=== PATIENT | female | born 1980 | race Two or more races ===

== ENCOUNTER 2020-03-17 21:22 | Inpatient (IN) | payer OTHER ==
[~2020-03-17] VITALS: Ht 154.9 cm; Wt 37.2 kg
[2020-03-17 21:35] VITALS: BP 109/66
--- NOTE | 2020-03-17 21:35 | NUR ---
ED Nurse Note: Pt presents with diffuse bruises across body, no open wounds.
--- NOTE | 2020-03-17 21:35 | NUR ---
ED Nurse Note: Pt brought into ED by BLS ambulance from [facility] for c/o increased amount of body movements that is not normal for pt per EMS. Pt has hx of flex's disease. Pt is awake and alert, presenting with excessive amount of generalized body movments. Pt is only able to make incomprehensible sounds, not able to speak in full sentences. Pt breathing is normal and unlabored. Pt connected to youth nutritional monitor. Seizure pads in place to prevent injury to patient and bed in lowest position. Will continue to monitor. Pt presents with stable vital signs at this time.
[2020-03-17] MEDS ORDERED: MELATONIN3 MG ORAL (21:40)
[2020-03-17] MEDS ORDERED: DOCUSATE SODIU100 M2 ORAL (21:40)
[2020-03-17] MEDS ORDERED: ACETAMINOPHEN120 MG RECTAL (21:40)
[2020-03-17] MEDS ORDERED: TYLENOL EXTRA500 MG ORAL (21:40)
[2020-03-17] MEDS ORDERED: ZOFRAN ODT8 MG ORAL (21:40)
[2020-03-17] MEDS ORDERED: LEVSIN0.125 MG ORAL (21:40)
[2020-03-17] MEDS ORDERED: ATIVAN2 MG/1 ML IM (21:40)
--- NOTE | 2020-03-17 21:44 | Emergency Room Report ---
History of Present Illness General Chief Complaint: General Complaint Source: Patient, Medical Record Present Illness HPI Patient is a 39-year-old female brought in by after increased generalized body movements. Prior history of Columbia's chorea. Patient was sent in for worsening generalized body movement. Patient had been brought in by basic ambulance. [facility] by Allergies: Coded Allergies: No Known Allergies (Unverified , 03/17/20) COVID-19 Screening Contact w/high risk pt: No Recent Travel to affected area: No Experienced COVID-19 symptoms?: No COVID-19 Testing performed [employer]S FORMER SUPERVISOR: No Patient History Past Medical History: see triage record Reviewed Nursing Documentation: PMH: Agreed; PSxH: Agreed Review of Systems All Other Systems: limited - Limited by poor historian. Physical Exam Vital Signs Date Time Temp Pulse Resp B/P (MAP) Pulse Ox O2 Delivery O2 Flow Rate FiO2 03/17/20 21:21 98.1 75 20 110/52 (71) 97 Room Air Sp02 EP Interpretation: reviewed, normal General Appearance: normal inspection, well appearing, alert, GCS 15, Chronically Ill Head: atraumatic ENT: normal ENT inspection, hearing grossly normal, normal voice Neck: normal inspection, full range of motion, supple, no bony tend Respiratory: normal inspection, lungs clear, normal breath sounds, no respiratory distress, no retraction, no wheezing Cardiovascular #1: regular rate, rhythm, no edema Gastrointestinal: normal inspection, normal bowel sounds, non tender, soft, no guarding, no hernia Genitourinary: no CVA tenderness Musculoskeletal: normal inspection, back normal, normal range of motion Neurologic: alert, responsive, other - Choreiform movements. Psychiatric: normal inspection, judgement/insight normal, mood/affect normal Medical Decision Making Diagnostic Impression: Primary Impression: Columbia chorea Additional Impressions: Dehydration Electrolyte imbalance ER Course Patient presented for increased generalized body movements. Differential diagnosis include was not limited to electrolyte abnormality, atypical seizure, substance abuse, Columbia's chorea among others. Because of complexity of patient's case laboratory tests and imaging studies were ordered. 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 She was noted to have significant choreoathetoid movements. Patient was given IM Ativan due to significant muscle contractions.Dr. Tk Herrera was contacted for inpatient management was contacted for inpatient management due to primary care physician and uncontrolled muscle movements and evidence of dehydration. Laboratory Tests Test 03/19/20 05:10 03/20/20 05:20 White Blood Count 12.0 K/UL (4.8-10.8) H 10.7 K/UL (4.8-10.8) Red Blood Count 4.06 M/UL (4.20-5.40) L 4.07 M/UL (4.20-5.40) L Hemoglobin 12.6 G/DL (12.0-16.0) 13.0 G/DL (12.0-16.0) Hematocrit 37.4 % (37.0-47.0) 37.1 % (37.0-47.0) Mean Corpuscular Volume 92 FL (80-99) 91 FL (80-99) Mean Corpuscular Hemoglobin 31.2 PG (27.0-31.0) H 31.9 PG (27.0-31.0) H Mean Corpuscular Hemoglobin Concent 33.8 G/DL (32.0-36.0) 35.0 G/DL (32.0-36.0) Red Cell Distribution Width 11.8 % (11.6-14.8) 11.2 % (11.6-14.8) L Platelet Count 212 K/UL (150-450) 206 K/UL (150-450) Mean Platelet Volume 5.4 FL (6.5-10.1) L 5.6 FL (6.5-10.1) L Neutrophils (%) (Auto) 74.3 % (45.0-75.0) 58.2 % (45.0-75.0) Lymphocytes (%) (Auto) 16.3 % (20.0-45.0) L 30.6 % (20.0-45.0) Monocytes (%) (Auto) 7.1 % (1.0-10.0) 7.5 % (1.0-10.0) Eosinophils (%) (Auto) 1.5 % (0.0-3.0) 2.6 % (0.0-3.0) Basophils (%) (Auto) 0.8 % (0.0-2.0) 1.1 % (0.0-2.0) Sodium Level 149 MMOL/L (136-145) H 144 MMOL/L (136-145) Potassium Level 3.5 MMOL/L (3.5-5.1) 5.3 MMOL/L (3.5-5.1) #H Chloride Level 111 MMOL/L (98-107) H 107 MMOL/L (98-107) Carbon Dioxide Level 30 MMOL/L (21-32) 32 MMOL/L (21-32) Anion Gap 8 mmol/L (5-15) 5 mmol/L (5-15) Blood Urea Nitrogen 22 mg/dL (7-18) H 12 mg/dL (7-18) Creatinine 0.5 MG/DL (0.55-1.30) L 0.6 MG/DL (0.55-1.30) Estimated Glomerular Filtration Rate > 60 mL/min (>60) > 60 mL/min (>60) Glucose Level 117 MG/DL (74-106) H 88 MG/DL (74-106) Uric Acid 2.2 MG/DL (2.6-7.2) L Calcium Level 9.1 MG/DL (8.5-10.1) 9.0 MG/DL (8.5-10.1) Phosphorus Level 2.2 MG/DL (2.5-4.9) L Magnesium Level 2.1 MG/DL (1.8-2.4) Total Bilirubin 0.4 MG/DL (0.2-1.0) Aspartate Amino Transferase (AST) 127 U/L (15-37) H Alanine Aminotransferase (ALT) 76 U/L (12-78) Alkaline Phosphatase 64 U/L (46-116) Total Protein 6.9 G/DL (6.4-8.2) Albumin 3.5 G/DL (3.4-5.0) Globulin 3.4 g/dL Albumin/Globulin Ratio 1.0 (1.0-2.7) Last Vital Signs Date Time Temp Pulse Resp B/P (MAP) Pulse Ox O2 Delivery O2 Flow Rate FiO2 03/17/20 21:21 98.1 75 20 110/52 (71) 97 Room Air Status: unchanged Disposition: ADMITTED INPATIENT Condition: Stable Wade Blanco MD Mar 17, 2020 21:44
[2020-03-17] MEDS ORDERED: LORazepam Inj 2mg/ml 1ml IM ONE (21:45)
--- NOTE | 2020-03-17 21:45 | NUR ---
ED Nurse Note: IV line established, blood drawn by RN and sent to lab. Urine sample also collected and sent to lab.
[2020-03-17 22:03] LABS: HEMATOCRIT 46.1 % (37.0-47.0); MEAN CORPUSCULAR VOLUME 100 FL (80-99); PLATELET COUNT 310 K/UL (150-450); RED BLOOD COUNT 4.59 M/UL (4.20-5.40); RED CELL DISTRIBUTION WIDTH 13.2 % (11.6-14.8); WHITE BLOOD COUNT 18.4 K/UL (4.8-10.8)
[2020-03-17 22:05] LABS: APPEARANCE,URINE CLEAR; BASOPHILS % (AUTO) 0.5 % (0.0-2.0); BILIRUBIN, URINE NEGATIVE (NEGATIVE); COLOR,URINE PALE YELLOW; EOSINOPHILS % (AUTO) 0.5 % (0.0-3.0); GLUCOSE, URINE (UA) NEGATIVE (NEGATIVE); KETONES,URINE NEGATIVE (NEGATIVE); LEUKOCYTE ESTERASE ,URINE NEGATIVE (NEGATIVE); LYMPHOCYTES % (AUTO) 14.9 % (20.0-45.0); MONOCYTES % (AUTO) 9.6 % (1.0-10.0); NEUTROPHILS % (AUTO) 74.4 % (45.0-75.0); NITRITE,URINE NEGATIVE (NEGATIVE); PH,URINE 5 (4.5-8.0); PROTEIN,URINE 2+ (NEGATIVE); UROBILINOGEN,URINE NORMAL MG/DL (0.0-1.0)
[2020-03-17 22:14] LABS: ANION GAP 8 mmol/L (5-15); BLOOD UREA NITROGEN 43 mg/dL (7-18); CALCIUM 10.3 MG/DL (8.5-10.1); CARBON DIOXIDE 33 MMOL/L (21-32); CHLORIDE 118 MMOL/L (98-107); CREATININE 1.1 MG/DL (0.55-1.30); POTASSIUM 4.7 MMOL/L (3.5-5.1); SODIUM 159 MMOL/L (136-145)
[2020-03-17 22:27] LABS: ALANINE AMINOTRANSFERASE 61 U/L (12-78); ALBUMIN 4.4 G/DL (3.4-5.0); ALKALINE PHOSPHATASE 81 U/L (46-116); ASPARTATE AMINO TRANSFERASE 56 U/L (15-37); BILIRUBIN,TOTAL 0.4 MG/DL (0.2-1.0)
[2020-03-17 22:28] LABS: CREATINE KINASE 1482 U/L (26-308)
[2020-03-17 22:30] VITALS: BP 104/66
--- NOTE | 2020-03-17 22:45 | NUR ---
ED Nurse Note: Report given to HARRIS Graham.
--- NOTE | 2020-03-17 23:00 | NUR ---
NURSE NOTES: PATIENT WAS SAFELY TRANSFERRED TO UNIT VIA GURNEY. RECEIVED REPORT FROM HARRIS MCDANIEL. DR. CORNEJO IS MADE AWARE OF PATIENT'S ARRIVAL. PATIENT IS AWAKE, AAOX0, NON-VERBAL, ON ROOM AIR, NO ACUTE DISTRESS NOTED. PATIENT IS NOTED WITH MULTIPLE BRUISES ACROSS BODY, SKIN TEAR ON RIGHT ELBOW AND UNDER THE CHIN. PATIENT PRESENTS WITH INVOLUNTARY JERKING MOVEMENTS, BUT CALM AT THE MOMENT. VSS. PIV ON RIGHT UPPER ARM 20G INTACT AND PATENT. ALL SIDE RAILS ARE PADDED FOR PROTECTION. BED IS LOCKED AND LOW, BED ALARMS ACTIVE, SIDE RAILS UP X3 AND CALL LIGHT IS WITHIN REACH. WILL CONTINUE TO MONITOR CLOSELY.
--- NOTE | 2020-03-17 23:00 | NUR ---
ED Nurse Note: Pt is stable for transfer to [place] unit at this time per ERMD. Pt is awake and alert, appears more relaxed at this time. Pt breathing is normal and unlabored, HR is WNL. Pt taken to unit via gurney by RN. Pt has no belongings. IV is patent and intact. Pt VSS/NAD.
[2020-03-17 23:05] VITALS: BP 112/63
--- NOTE | 2020-03-17 23:51 | NUR ---
NURSE NOTES: CALL AND LEFT MESSAGE WITH DR. CORNEJO, AWAITING FOR CALL BACK.
[2020-03-18] MEDS: cefTRIAXone 1 GM in D5W 55 ML IVPB SCH ×2 (00:54→23:11)
[2020-03-18] MEDS ORDERED: LORazepam Inj 2mg/ml 1ml IV SCH (03:00)
--- NOTE | 2020-03-18 03:00 | NUR ---
NURSE NOTES: PATIENT IS AWAKE, AGITATED WITH AGGRESSIVE INVOLUNTARY JERKING MOVEMENTS. RECEIVED BRIDGE ORDERS FROM KRISTIN GONZALEZ FOR ATIVAN 1MG IV X1.
--- NOTE | 2020-03-18 04:00 | NUR ---
NURSE NOTES: RECEIVED ADMISSION ORDERS FROM DR. CORNEJO.
[2020-03-18] MEDS ORDERED: Acetaminophen 500mg (ES) tab ORAL PRN ×2 (04:45)
[2020-03-18] MEDS ORDERED: LORazepam Inj 2mg/ml 1ml IM SCH ×3 (04:45→17:45)
[2020-03-18] MEDS ORDERED: Hyoscyamine 0.125mg tab ORAL PRN (04:45)
[2020-03-18] MEDS ORDERED: D5 1/2NS 1,000 ML IV SCH (05:00)
--- NOTE | 2020-03-18 07:20 | NUR ---
NURSE NOTES: Handoff received from Gladys RN. Patient is awake, AxO x0, and non-verbal. Right FA IV is patent and asymptomatic, currently saline locked. Several bruises are noted on ZEUS legs and arms, open skin tear noted on right elbow. Patient is exhibiting involuntary jerking movements and frequently moves around the bed. Bed is low and locked, side rails are padded and up x4. Patient was moved to a room closer to the nurses station for safety.
--- NOTE | 2020-03-18 07:33 | NUR ---
HAND-OFF: Report given to HARRIS Dan.
[2020-03-18 07:43] LABS: BASOPHILS % (AUTO) 0.8 % (0.0-2.0); EOSINOPHILS % (AUTO) 0.8 % (0.0-3.0); HEMATOCRIT 35.9 % (37.0-47.0); HEMOGLOBIN 12.2 G/DL (12.0-16.0); LYMPHOCYTES % (AUTO) 17.6 % (20.0-45.0); MEAN CORPUSCULAR VOLUME 92 FL (80-99); MONOCYTES % (AUTO) 8.6 % (1.0-10.0); NEUTROPHILS % (AUTO) 72.2 % (45.0-75.0); PLATELET COUNT 217 K/UL (150-450); RED BLOOD COUNT 3.91 M/UL (4.20-5.40); RED CELL DISTRIBUTION WIDTH 11.9 % (11.6-14.8); WHITE BLOOD COUNT 14.1 K/UL (4.8-10.8)
[2020-03-18 08:06] LABS: ANION GAP 8 mmol/L (5-15); BLOOD UREA NITROGEN 25 mg/dL (7-18); CALCIUM 8.7 MG/DL (8.5-10.1); CARBON DIOXIDE 28 MMOL/L (21-32); CHLORIDE 121 MMOL/L (98-107); CREATININE 0.5 MG/DL (0.55-1.30); POTASSIUM 3.4 MMOL/L (3.5-5.1); SODIUM 157 MMOL/L (136-145)
[2020-03-18] MEDS: Docusate 100mg cap ORAL SCH (09:00)
[2020-03-18 09:07] LABS: ALANINE AMINOTRANSFERASE 52 U/L (12-78); ALBUMIN 3.5 G/DL (3.4-5.0); ALKALINE PHOSPHATASE 58 U/L (46-116); ASPARTATE AMINO TRANSFERASE 67 U/L (15-37); BILIRUBIN,DIRECT < 0.1 MG/DL (0.0-0.3); BILIRUBIN,TOTAL 0.5 MG/DL (0.2-1.0); PHOSPHORUS 2.2 MG/DL (2.5-4.9)
--- NOTE | 2020-03-18 09:50 | NUR ---
NURSE NOTES: Called to inform Dr. Brown about ordered fluids, patient thrashing in bed and pulled out IV. No new orders.
--- NOTE | 2020-03-18 10:14 | NUR ---
RD ASSESSMENT & RECOMMENDATIONS SEE CARE ACTIVITY FOR COMPLETE ASSESSMENT DAILY ESTIMATED NEEDS: Needs based on Underweight 37kg 30-35 kcals/kg 2050-9025 total kcals 1-1.5 g protein/kg 37-56 g total protein 25-30 mL/kg 925-1110 total fluid mLs NUTRITION DIAGNOSIS: Increased kcal and pro needs r/t underweight status as evidenced by BMI underweight per guidelines, 84% of [place] Body Weight. (CURRENT DIET: regular) PO DIET RECOMMENDATIONS: Regular diet/ Texture per OUTBOUND CALL CENTER REPRESENTATIVE ENTERAL NUTRITION RECOMMENDATIONS: * Consult RD if non oral feeds are part of POC * ADDITIONAL RECOMMENDATIONS: 1) Maintain accurate calibrated bed scale wt in light of underweight BMI 2) Rec OUTBOUND CALL CENTER REPRESENTATIVE eval for appropriate texture 3) Add Ensure w/ meals 4) Monitor hydration status, rec IVF w/ poor po intake 5) F/up w/ H&P
[2020-03-18] MEDS ORDERED: Acetaminophen 650 MG SUPP RECTAL PRN (10:15)
--- NOTE | 2020-03-18 10:15 | NUR ---
NURSE NOTES: Called Dr. Yates and left a message regarding possible restraints and/or PRNs for patient. Waiting for call back.
--- NOTE | 2020-03-18 10:21 | NUR ---
*-* INSURANCE *-* ALL AVAILABLE CLINICALS HAVE BEEN FAXED TO: [facility] F: [phone]
--- NOTE | 2020-03-18 11:10 | NUR ---
PT EVALUATION NOTE Patient seen for initial evaluation. Patient with involuntary jerking movements and patient unable to follow commands. Patient unable to participate with skilled PT, not appropriate candidate for skilled inpatient PT intervention at this time. Patient discharged from PT, Sy IGLESIAS notified. Skilled PT can be re-ordered by MD if patient's cognitive and medical condition improve. Addendum: 03/18/20 at 1239 by STACY ARRIAGA PT Amended: Links added.
[2020-03-18 12:00] VITALS: BP 115/70
--- NOTE | 2020-03-18 12:00 | NUR ---
NURSE NOTES: Doctor Yates ordered Ativan 1mg IV once. Will medicate patient as ordered and attempt to place IV.
--- NOTE | 2020-03-18 13:30 | Consultation ---
History of Present Illness General Date patient seen: Mar 18, 2020 Chief Complaint: General Complaint Present Illness HPI 39 y/o F with hx of Wm's chorea, [place] resident ([facility] ) presented to ED on 03/17 with increased generalized body movements. Allergies: Coded Allergies: No Known Allergies (Unverified , 03/17/20) Medication History Scheduled Docusate Sodium (Docusate Sodium), 100 MG ORAL DAILY, (Reported) Lorazepam* (Ativan*), 1 MG IM Q6H, (Reported) Scheduled PRN Acetaminophen* (Tylenol*), 120 MG RECTAL Q4H PRN for Mild Pain/Temp > 100.5, ( Reported) Acetaminophen* (Tylenol Extra Strength*), 650 MG ORAL Q6H PRN for Mild Pain/ Temp > 100.5, (Reported) Acetaminophen* (Tylenol Extra Strength*), 650 MG ORAL Q6H PRN for Mild Pain/ Temp > 100.5, (Reported) Melatonin (Melatonin), 3 MG ORAL BEDTIME PRN for Insomnia, (Reported) Ondansetron Odt* (Zofran Odt*), 4 MG ORAL Q6H PRN for Nausea & Vomiting, ( Reported) Miscellaneous Medications Hyoscyamine Sulfate (Levsin), 0.125 MG ORAL, (Reported) Patient History Healthcare decision maker Resuscitation status Advanced Directive on File Patient History Narrative Pmhx: as above SHx: reviewed Fhx: non contributory Review of Systems All Other Systems: negative except mentioned in HPI Physical Exam Physical Exam Narrative General Appearance: normal inspection, well appearing, alert Head: atraumatic ENT: normal ENT inspection, hearing grossly normal, normal voice Neck: normal inspection, full range of motion, supple, no bony tend Respiratory: normal inspection, lungs clear, normal breath sounds, no respiratory distress, no retraction, no wheezing Cardiovascular #1: regular rate, rhythm, no edema Gastrointestinal: normal inspection, normal bowel sounds, non tender, soft, no guarding, no hernia Genitourinary: no CVA tenderness Musculoskeletal: normal inspection, back normal, normal range of motion Neurologic: alert, responsive, speech normal, normal inspection, other - Choreiform movements. Last 24 Hour Vital Signs Date Time Temp Pulse Resp B/P (MAP) Pulse Ox O2 Delivery O2 Flow Rate FiO2 03/18/20 01:03 Room Air 03/17/20 23:05 97.8 60 18 112/63 (79) 100 03/17/20 23:00 99.0 74 16 114/76 99 Room Air 03/17/20 22:30 99.0 69 18 104/66 100 Room Air 03/17/20 21:35 76 24 Room Air 03/17/20 21:35 99.9 76 24 109/66 98 Room Air 03/17/20 21:21 98.1 75 20 110/52 (71) 97 Room Air Intake and Output 03/17/20 03/18/20 19:00 07:00 Intake Total 110 ml Output Total 100 ml Balance 10 ml Intake Oral 0 ml IV Total 110 ml Output Urine Total 100 ml # Voids 2 Laboratory Tests Test 03/17/20 21:40 03/18/20 05:00 White Blood Count 18.4 K/UL (4.8-10.8) H 14.1 K/UL (4.8-10.8) H Red Blood Count 4.59 M/UL (4.20-5.40) 3.91 M/UL (4.20-5.40) L Hemoglobin 14.0 G/DL (12.0-16.0) 12.2 G/DL (12.0-16.0) Hematocrit 46.1 % (37.0-47.0) 35.9 % (37.0-47.0) L Mean Corpuscular Volume 100 FL (80-99) H 92 FL (80-99) Mean Corpuscular Hemoglobin 30.5 PG (27.0-31.0) 31.2 PG (27.0-31.0) H Mean Corpuscular Hemoglobin Concent 30.4 G/DL (32.0-36.0) L 34.0 G/DL (32.0-36.0) Red Cell Distribution Width 13.2 % (11.6-14.8) 11.9 % (11.6-14.8) Platelet Count 310 K/UL (150-450) 217 K/UL (150-450) Mean Platelet Volume 7.6 FL (6.5-10.1) 5.8 FL (6.5-10.1) L Neutrophils (%) (Auto) 74.4 % (45.0-75.0) 72.2 % (45.0-75.0) Lymphocytes (%) (Auto) 14.9 % (20.0-45.0) L 17.6 % (20.0-45.0) L Monocytes (%) (Auto) 9.6 % (1.0-10.0) 8.6 % (1.0-10.0) Eosinophils (%) (Auto) 0.5 % (0.0-3.0) 0.8 % (0.0-3.0) Basophils (%) (Auto) 0.5 % (0.0-2.0) 0.8 % (0.0-2.0) Urine Color Pale yellow Urine Appearance Clear Urine pH 5 (4.5-8.0) Urine Specific [place] 1.020 (1.005-1.035) Urine Protein 2+ (NEGATIVE) H Urine Glucose (UA) Negative (NEGATIVE) Urine Ketones Negative (NEGATIVE) Urine Blood 5+ (NEGATIVE) H Urine Nitrite Negative (NEGATIVE) Urine Bilirubin Negative (NEGATIVE) Urine Urobilinogen Normal MG/DL (0.0-1.0) Urine Leukocyte Esterase Negative (NEGATIVE) Urine RBC 2-4 /HPF (0 - 2) H Urine WBC 0-2 /HPF (0 - 2) Urine Squamous Epithelial Cells None /LPF (NONE/OCC) Urine Bacteria Few /HPF (NONE) Urine HCG, Qualitative Negative (NEGATIVE) Sodium Level 159 MMOL/L (136-145) H 157 MMOL/L (136-145) H Potassium Level 4.7 MMOL/L (3.5-5.1) 3.4 MMOL/L (3.5-5.1) L Chloride Level 118 MMOL/L (98-107) H 121 MMOL/L (98-107) H Carbon Dioxide Level 33 MMOL/L (21-32) H 28 MMOL/L (21-32) Anion Gap 8 mmol/L (5-15) 8 mmol/L (5-15) Blood Urea Nitrogen 43 mg/dL (7-18) H 25 mg/dL (7-18) H Creatinine 1.1 MG/DL (0.55-1.30) 0.5 MG/DL (0.55-1.30) #L Estimat Glomerular Filtration Rate 55.6 mL/min (>60) > 60 mL/min (>60) Glucose Level 141 MG/DL (74-106) H 116 MG/DL (74-106) H Calcium Level 10.3 MG/DL (8.5-10.1) H 8.7 MG/DL (8.5-10.1) Total Bilirubin 0.4 MG/DL (0.2-1.0) 0.5 MG/DL (0.2-1.0) Aspartate Amino Transf (AST/SGOT) 56 U/L (15-37) H 67 U/L (15-37) H Alanine Aminotransferase (ALT/SGPT) 61 U/L (12-78) 52 U/L (12-78) Alkaline Phosphatase 81 U/L (46-116) 58 U/L (46-116) Total Creatine Kinase 1482 U/L (26-308) H Total Protein 8.7 G/DL (6.4-8.2) H 6.8 G/DL (6.4-8.2) Albumin 4.4 G/DL (3.4-5.0) 3.5 G/DL (3.4-5.0) Globulin 4.3 g/dL Albumin/Globulin Ratio 1.0 (1.0-2.7) Thyroid Stimulating Hormone (TSH) 0.377 uiU/mL (0.358-3.740) Urine Opiates Screen Negative (NEGATIVE) Urine Barbiturates Screen Negative (NEGATIVE) Phencyclidine (PCP) Screen Negative (NEGATIVE) Urine Amphetamines Screen Negative (NEGATIVE) Urine Benzodiazepines Screen Negative (NEGATIVE) Urine Cocaine Screen Negative (NEGATIVE) Urine Marijuana (THC) Screen Negative (NEGATIVE) Phosphorus Level 2.2 MG/DL (2.5-4.9) L Magnesium Level 2.3 MG/DL (1.8-2.4) Direct Bilirubin < 0.1 MG/DL (0.0-0.3) Microbiology Date/Time Source Procedure Growth Status 03/17/20 22:30 Rectum Received Height (Feet): 5 Height (Inches): 1.00 Weight (Pounds): 82 Medications Current Medications Medications (Trade) Dose Ordered Sig/Martin Route PRN Reason Start Time Stop Time Status Last Admin Dose Admin Acetaminophen (Tylenol) 650 mg Q4H PRN RECTAL Mild Pain/TEMP 03/18/20 10:15 04/17/20 10:14 Acetaminophen (Tylenol) 650 mg Q6H PRN ORAL MILD/TEMP 03/18/20 05:15 04/17/20 04:44 Acetaminophen (Tylenol) 650 mg Q6H PRN ORAL MILD/TEMP 03/18/20 05:15 04/17/20 04:44 Ceftriaxone Sodium 1 gm/ Dextrose 55 ml @ 110 mls/hr Q24H IVPB 03/18/20 00:00 03/25/20 00:00 03/18/20 00:54 Dextrose 1,000 ml @ 75 mls/hr [id number] IV 03/18/20 08:30 04/17/20 08:29 Docusate Sodium (Colace) 100 mg DAILY ORAL 03/18/20 09:00 04/17/20 08:59 Hyoscyamine Sulfate (Levsin) 0.125 mg Q6H PRN ORAL EXCESSIVE SECRETIONS 03/18/20 04:45 04/17/20 04:44 Lorazepam (Ativan 2mg/ml 1ml) 1 mg Q6H PRN IM For Anxiety 03/18/20 05:00 03/25/20 04:44 Ondansetron HCl (Zofran ODT) 4 mg Q6H PRN ORAL Nausea & Vomiting 03/18/20 04:45 04/17/20 04:44 Quetiapine Fumarate (SEROqueL) 50 mg TID ORAL 03/18/20 13:00 05/02/20 12:59 Assessment/Plan Assessment/Plan: Abx: Ceftriaxone 03/18- Assessment: Afebrile Leukocytosis, improving- likely reactive and from hemoconcentration due to dehydration -CXR p -Bcx p -u/a no pyuria, nit neg, leuk neg Dehydration Rhabdomylosis AMY, improving -CK int the 1k, blood in urine +5 but no RBCs Wm's chorea- increased in movements [place] resident ([facility]) Plan: -Continue empiric Ceftriaxone #1 pending CXR and Blood cultures -f/u cx -Monitor CBC/CMP, temperatures -Neuro eval -aspiration precautions Thank you for consulting [facility]. Will continue to follow along with you. Anamika Mejía M.D. Mar 18, 2020 13:30
--- NOTE | 2020-03-18 13:57 | Consultation ---
Consult Note Consult Note I am asked to evaluate the patient at the request of Dr. Herrera for fluid and electrolyte management Patient is a young female who has past history of psychiatric disorder Emergency room note: Patient is a 39-year-old female brought in by after increased generalized body movements. Prior history of [place]'s chorea. Patient was sent in for worsening generalized body movement. Patient had been brought in by basic ambulance. [facility] Allergies: No Known Allergies (Unverified , 03/17/20) COVID-19 Screening Contact w/high risk pt: No Recent Travel to affected area: No Experienced COVID-19 symptoms?: No COVID-19 Testing performed ZIPPER REPAIRER: No Patient seen in room 310. RN present. Patient has severe Choreic movements. Cannot be examined. Patient pulls all the IVs out. Assessment/Plan Dehydration Hypernatremia secondary to dehydration and free water deficit Electrolyte abnormalities, hypokalemia, hypophosphatemia, Suggestions: Neuro/psych management IV D5W for hydration Monitor electrolytes and chemistries Discussed with RN I spent an additional 36 minutes on review of medical records including prior hospital records,consult notes, progress notes, procedures ,imaging labs, hemodynamics, and other clinical documentation. Hayden Brown MD Mar 18, 2020 13:57
--- NOTE | 2020-03-18 14:13 | NUR ---
CASE MANAGEMENT: INITIAL REVIEW 39YR OLD BIBA FROM [facility] CC:GENERAL COMPLAINT PMHX: ARRON DISEASE SI:ARRON CHOREA 98.1 75 20 110/52 97% ON RA WBC 18.4 NA+ 159 CL-118 CO2-33 BUN 43 BG 141 CA+ 10.3 AST 56 CK 1482 IS:IM ATIVAN X1 IV ATIVAN X1 IVF NS BOLUS X3 \: 3E MED SURG UNIT CASE MANAGEMENT: REVIEW 03/18/20 SI:ARRON CHOREA 97.8 60 18 112/63 100% ON RA WBC 14.4 NA+ 157 K+3.4 CL-121 CO2-33 BUN 25 CREAT 0.5 BG 116 PHOS 2.2 CA+ 10.3 AST 67 IS:IV ROCEPHIN Q24HR \: 3E MED SURG UNIT PLAN: CONSULT NEPHRO
--- NOTE | 2020-03-18 17:20 | NUR ---
HAND-OFF: Report given to Nacho IGLESIAS.
--- NOTE | 2020-03-18 17:30 | NUR ---
NURSE NOTES: Dr. Yates ordered Haldol 10, ativan 2, benadryl 50 IM once. Will medicate patient as ordered and attempt to place IV.
[2020-03-18] MEDS ORDERED: DiphenhydrAMINE 50mg/ml Inj IM SCH (17:45)
[2020-03-18] MEDS ORDERED: Haloperidol 5mg/ml Inj IM SCH (17:45)
[2020-03-18] MEDS: Phospha 250 Neutral tab ORAL SCH (18:00)
--- NOTE | 2020-03-18 18:00 | NUR ---
NURSE NOTES: IV was placed on patient's right forearm 22g.
--- NOTE | 2020-03-18 19:00 | History and Physical Report ---
DATE OF ADMISSION: 03/17/2020 DATE AND TIME SEEN: 03/18/2020 at 10 a.m. CONSULTANTS: 1. John Yates MD. 2. Dago Fisher MD. 3. Hayden Brown MD. 4. Dom Bond MD. CHIEF COMPLAINT: Dehydration, Wm's, possible seizure, schizophrenia. BRIEF HISTORY: This is a 39-year-old female from [facility] presented with above-mentioned diagnoses, admitted to medical floor. Currently confused in bed, writhing movement, combative. PAST MEDICAL HISTORY: Includes [place]'s and schizophrenia. PAST SURGICAL HISTORY: Unknown. MEDICATIONS: Include Tylenol, , IV fluids, Lorazepam, Zofran, ceftriaxone. ALLERGIES: Denies. SOCIAL HISTORY: Unable to obtain. OBJECTIVE: GENERAL: Confused in bed, disoriented x3. Writhing movements. VITAL SIGNS: Temperature 97 degrees, pulse 60, respirations 18, blood pressure 112/63. HEENT: Normocephalic, atraumatic. NECK: Trachea midline. CARDIOVASCULAR: No peripheral edema. LUNGS: Breathing comfortably on room air. ABDOMEN: No apparent wound. EXTREMITIES: No cyanosis or clubbing. NEUROLOGIC: Patient has writhing movement with arms and head. LABORATORY AND DIAGNOSTIC DATA: Labs at this time show white count 14, hemoglobin and hematocrit 12/35, platelets 217. Sodium 157, potassium 3.4, chloride 121, BUN/creatinine 25/0.5, glucose 116. CK is 1482. Urinalysis show 5+ blood, 2+ protein. Urine tox is negative. ASSESSMENT: 1. Dehydration. 2. Seizure. 3. Leukocytosis. 4. [place]'s disease. 5. Schizophrenia. PLAN: 1. Antibiotics per Infectious Disease. 2. Psychiatric treatment. 3. Dietary followup. 4. Seizure control. 5. Fluids. 6. PT, dietary evaluation. 7. CBC, BMP in the morning. Tk Herrera D.O. DR: JAKE JOB#: [id number] CC:
--- NOTE | 2020-03-18 19:30 | NUR ---
NURSE NOTES: Received patient in bed. Asleep. IV site patent and intact. Bed in lowest position. Call light within reach. Will continue to monitor.
[2020-03-18 20:00] VITALS: BP 101/71
[2020-03-18] MEDS: Heparin 5000 units/ml inj SUBQ SCH (21:58)
--- NOTE | 2020-03-18 23:00 | Consultation ---
DATE OF CONSULTATION: 03/18/2020 CONSULTING PHYSICIAN: John Yates MD HISTORY OF PRESENT ILLNESS: This is a 39-year-old female patient with altered mental status. She is confused and disorganized. She does have altered mental status and she came to the hospital because her body movements have become more severe and she has been having some psychomotor agitation and irritability and difficult to control from a standpoint of the long term. So, she was brought into the hospital. I saw and assessed her at bedside. She does have mood dysphoria, lot of psychomotor and choreiform movements, confusion, disorganized thought process, and they wanted to rule out seizure activity, but the patient is very confused and disorganized. MEDICAL PROBLEMS: She has Wm's chorea. ALLERGIES: No known drug allergies. PSYCHOTROPIC MEDICATIONS ON ADMISSION: The patient is on a psychotropic medication regimen consisting of melatonin and Ativan. SUBSTANCE ABUSE HISTORY: No history of drug or alcohol use. PAIN ASSESSMENT: 12/23. DEVELOPMENTAL PROBLEMS: Denies. FAMILY PSYCHIATRIC HISTORY: Denies. SOCIAL HISTORY: Lives in [facility]. Financially supported by [employer] and Medicare. STRENGTHS: She is motivated to get better and has a place to live. WEAKNESSES: She is impulsive. Minimal support system. MENTAL STATUS EXAMINATION: This is a 39-year-old female. Appearance is disheveled. Attitude, irritable and agitated. Affect, guarded and restricted. Intellect poor because she cannot do serial 7's or spell world backwards. Orientation x2. She is oriented to person and place, not time and situation. Speech is nonsensical. Thought process, disorganized and illogical. Thought content, she has auditory hallucinations and paranoid delusions. Perception is poor because she has perceptual disturbances such as auditory hallucinations and paranoid delusions. Abstract reasoning is poor because she does not understand proverbs, only has concrete thinking. Insight is poor she does not recognize having any psychiatric disorder. Judgment is poor because she cannot make clear decisions for herself. DIAGNOSES: 1. Major depressive disorder, severe, recurrent with psychotic features. 2. No secondary. 3. Medical, [place]'s chorea. 4. Psychosocial stressors, financial. 5. Functional impairment is severe. PLAN: I am going to start and give this patient a medication regimen of Seroquel 50 mg twice a day to help reduce agitation and irritability and help calm down her psychomotor agitation and she seems to have a lot of psychomotor agitation at bedside and had to be put on restraints, but the restraints are not working well, so automatic negative thoughts to be taken with Ativan. She seemed to have some psychomotor agitation as well and titrate up as needed. Seen and assessed at bedside. Twenty minutes of insight-oriented psychotherapy will be provided where I help this patient's insight into her physical and mental condition so that she has better impulse control and behavior on the unit and less depression. Twenty minutes of insight-oriented psychotherapy provided. Chart was reviewed and discussed with staff. The patient was seen and assessed at bedside. I would like to thank Dr. Tk Herrera for this interesting consultation. John Yates M.D. DR: VESTA JOB#: [id number] CC:
[2020-03-19] VITALS: BP 114/75
[2020-03-19] MEDS: LORazepam Inj 2mg/ml 1ml IM PRN ×2 (00:48→12:41)
--- NOTE | 2020-03-19 01:45 | Consultation ---
DATE OF CONSULTATION: 03/18/2020 NEUROLOGICAL CONSULTATION CONSULTING PHYSICIAN: Dago Fisher MD CHIEF COMPLAINT: This is the first [facility] admission for this 39-year-old woman with [place]'s chorea, who is admitted with a chief complaint of increased generalized body movement and fluid electrolyte management. I was asked to see the patient because of "seizure," although the seizure has not been documented. [place] [address] and mild anemia, normal platelets. Her osmolarity is probably around 324, BUN is now 25, was 43. CPK was 1482. TSH is 0.377. Urinalysis reveals few bacteria in the urine and only 2 white cells per high-power field. PAST MEDICAL HISTORY AND PAST MEDICAL ILLNESSES: Except as above, unavailable. ALLERGIES: No known allergies. HABITS: Unavailable. REVIEW OF SYSTEMS: Unavailable. PHYSICAL EXAMINATION: VITAL SIGNS: Last vital signs, which were done on March 17, 2020 were temperature 97.8 degrees, pulse is 60, blood pressure 112/62 with a respiratory rate of 18, on room air SpO2 is 100%. The patient could not be examined. The patient was in the position, could not be easily stretched out. MENTAL STATUS EXAMINATION: There is no reaction to her name. Her eyes are closed. She would have some slight choreoathetotic movements of her legs, none to be noted in her arms. There was no spontaneous speech. Rest of the could not be done. IMPRESSION: This patient has altered mental status from [place]'s chorea and hyperosmolar state. Her CPK is elevated . Her medications that she is on are unlikely to cause malignant hyperthermia. There is no evidence of seizures at this time. Therefore, I would not treat her with anticonvulsants. PLAN: 1. Hydrate the patient . 2. May want to get an Infectious Disease consult. Thank you for this interesting case. Dago Fisher MD DR: KERI JOB#: [id number] CC:
[2020-03-19 04:00] VITALS: BP 131/100
--- NOTE | 2020-03-19 05:25 | NUR ---
NURSE NOTES: Patient has severe body movement, very agitating, trying to remove IV line. Obtained order of Haldol 10mg IM, Ativan 2mg IM, Benadryl 50mg IM once and bilateral soft wrist Restraint from Dr. Yates.
[2020-03-19] MEDS ORDERED: Haloperidol 5mg/ml Inj IM SCH ×2 (05:45→14:30)
[2020-03-19] MEDS ORDERED: DiphenhydrAMINE 50mg/ml Inj IM SCH ×2 (05:45→14:30)
[2020-03-19] MEDS ORDERED: LORazepam Inj 2mg/ml 1ml IM SCH ×2 (05:45→14:30)
[2020-03-19 06:22] LABS: BASOPHILS % (AUTO) 0.8 % (0.0-2.0); EOSINOPHILS % (AUTO) 1.5 % (0.0-3.0); HEMATOCRIT 37.4 % (37.0-47.0); HEMOGLOBIN 12.6 G/DL (12.0-16.0); LYMPHOCYTES % (AUTO) 16.3 % (20.0-45.0); MEAN CORPUSCULAR VOLUME 92 FL (80-99); MONOCYTES % (AUTO) 7.1 % (1.0-10.0); NEUTROPHILS % (AUTO) 74.3 % (45.0-75.0); PLATELET COUNT 212 K/UL (150-450); RED BLOOD COUNT 4.06 M/UL (4.20-5.40); RED CELL DISTRIBUTION WIDTH 11.8 % (11.6-14.8)
[2020-03-19 06:56] LABS: ALANINE AMINOTRANSFERASE 76 U/L (12-78); ALBUMIN 3.5 G/DL (3.4-5.0); ALKALINE PHOSPHATASE 64 U/L (46-116); ANION GAP 8 mmol/L (5-15); ASPARTATE AMINO TRANSFERASE 127 U/L (15-37); BILIRUBIN,TOTAL 0.4 MG/DL (0.2-1.0); BLOOD UREA NITROGEN 22 mg/dL (7-18); CALCIUM 9.1 MG/DL (8.5-10.1); CARBON DIOXIDE 30 MMOL/L (21-32); CHLORIDE 111 MMOL/L (98-107); CREATININE 0.5 MG/DL (0.55-1.30); PHOSPHORUS 2.2 MG/DL (2.5-4.9); POTASSIUM 3.5 MMOL/L (3.5-5.1); SODIUM 149 MMOL/L (136-145)
--- NOTE | 2020-03-19 07:16 | NUR ---
HAND-OFF: Report given to Sy IGLESIAS. VS stable. Asleep, calm. Bed in lowest position. Call light within reach. will continue to monitor.
--- NOTE | 2020-03-19 07:25 | NUR ---
NURSE NOTES: Handoff received from Nacho IGLESIAS. Patient is asleep and calm, no signs of distress noted. Patient is in ZEUS soft wrist restraints. Restraints were assessed, no s/s of impaired circulation. Right forearm IV is patent and asymptomatic, running IVF as ordered. Side rails are up x3 and padded for safety. Bed is low and locked, call light within reach.
[2020-03-19 08:00] VITALS: BP 107/65
--- NOTE | 2020-03-19 08:45 | Progress Note ---
DATE: 03/18/2020 PSYCHOTHERAPY CONSULTATION PROGRESS NOTE TREATING ATTENDING PHYSICIAN: Tk Herrera D.O. HISTORY OF PRESENT ILLNESS: This is a 39-year-old female patient. The patient was brought in to the hospital for altered mental status. In the hospital, the patient has been . She is nonverbal at this time. However, she the patient is extremely disorganized . PAST MEDICAL HISTORY: financially sustained through [employer]. ALLERGIES: The patient has no known drug allergies. SUBSTANCE ABUSE HISTORY: There is no indication of alcohol use, illicit substance use, or smoking cigarette. PSYCHIATRIC HISTORY: The patient has a history of anxiety and has been treated with psychotropic medications in the past. SOCIAL HISTORY: The patient is a 39-year-old female [facility], financially sustained through [employer]. MENTAL STATUS EXAMINATION: The patient is alert and oriented to person. Mood is anxious. Affect . Thought process, disorganized. She has poor attention and concentration. Poor insight, judgment, and impulse control. DIAGNOSES: Generalized anxiety disorder and disorder. reality orientation which are focused on improving cognitive function of the patient who is confused and disorganized. Oriented to person, place, time and situation. The patient is extremely disorganized and confused, hopeless, and helpless . Plan is to maintain medication compliance with use of positive coping skills anxious and altered mental status. Iveth Mcintosh PsyD. DR: CHAVEZ JOB#: [id number] CC:
[2020-03-19] MEDS: Docusate 100mg cap ORAL SCH (09:00)
[2020-03-19] MEDS: Phospha 250 Neutral tab ORAL SCH ×3 (09:00→18:00)
[2020-03-19] MEDS: Heparin 5000 units/ml inj SUBQ SCH ×2 (09:28→22:04)
--- NOTE | 2020-03-19 10:00 | NUR ---
NURSE NOTES: Dr. Brown was informed during his rounds that the patient is refusing all PO meds.
--- NOTE | 2020-03-19 10:04 | Nephrology Progress Note ---
Assessment/Plan Problem List: (1) Dehydration (2) Electrolyte imbalance Assessment Dehydration Hypernatremia secondary to dehydration and free water deficit Electrolyte abnormalities, hypokalemia, hypophosphatemia, Plan Patient calm today. IV fluids running. P.o. intake remains poor. Discussed with RN. Neuro/psych management Continue IV D5W for hydration Monitor electrolytes and chemistries Discussed with RN Subjective ROS Limited/Unobtainable: No Objective Objective Last 24 Hour Vital Signs Date Time Temp Pulse Resp B/P (MAP) Pulse Ox O2 Delivery O2 Flow Rate FiO2 03/19/20 08:00 97.0 60 18 107/65 (79) 99 03/19/20 04:00 97.6 101 20 131/100 (110) 96 03/19/20 00:00 97.1 54 16 114/75 (88) 97 03/18/20 21:00 Room Air 03/18/20 20:00 98.1 58 16 101/71 (81) 98 03/18/20 12:00 97.8 74 20 115/70 (85) 96 Intake and Output 03/18/20 03/19/20 19:00 07:00 Intake Total 75 ml 1285 ml Balance 75 ml 1285 ml Intake Oral 480 ml IV Total 75 ml 805 ml # Voids 2 2 Laboratory Tests 03/19/20 05:10: White Blood Count 12.0H, Red Blood Count 4.06L, Hemoglobin 12.6, Hematocrit 37.4 , Mean Corpuscular Volume 92, Mean Corpuscular Hemoglobin 31.2H, Mean Corpuscular Hemoglobin Concent 33.8, Red Cell Distribution Width 11.8, Platelet Count 212, Mean Platelet Volume 5.4L, Neutrophils (%) (Auto) 74.3, Lymphocytes ( %) (Auto) 16.3L, Monocytes (%) (Auto) 7.1, Eosinophils (%) (Auto) 1.5, Basophils (%) (Auto) 0.8, Sodium Level 149H, Potassium Level 3.5, Chloride Level 111H, Carbon Dioxide Level 30, Anion Gap 8, Blood Urea Nitrogen 22H, Creatinine 0.5L, Estimat Glomerular Filtration Rate > 60, Glucose Level 117H, Uric Acid 2.2L, Calcium Level 9.1, Phosphorus Level 2.2L, Magnesium Level 2.1, Total Bilirubin 0.4, Aspartate Amino Transf (AST/SGOT) 127H, Alanine Aminotransferase (ALT/SGPT) 76, Alkaline Phosphatase 64, Total Protein 6.9, Albumin 3.5, Globulin 3.4, Albumin/Globulin Ratio 1.0 Height (Feet): 5 Height (Inches): 1.00 Weight (Pounds): 82 General Appearance: no apparent distress Cardiovascular: other - Variable Abdomen: soft Hayden Brown MD Mar 19, 2020 10:04
[2020-03-19 12:00] VITALS: BP 119/71
--- NOTE | 2020-03-19 12:19 | General Progress Note ---
Assessment/Plan Problem List: (1) Leukocytosis ICD Codes: D72.829 - Elevated white blood cell count, unspecified SNOMED: 778160192, 744102094 (2) [place] chorea ICD Codes: G10 - [place]'s disease SNOMED: 00426280 (3) Dehydration ICD Codes: E86.0 - Dehydration SNOMED: 26985051 (4) Electrolyte imbalance ICD Codes: E87.8 - Other disorders of electrolyte and fluid balance, not elsewhere classified SNOMED: 382203826 Status: unchanged Assessment/Plan: pt diet abx ivf cbc bmp am dc plan Subjective Constitutional: Reports: weakness Allergies: Coded Allergies: No Known Allergies (Unverified , 03/17/20) All Systems: reviewed and negative except above Subjective sleepy calm Objective Last 24 Hour Vital Signs Date Time Temp Pulse Resp B/P (MAP) Pulse Ox O2 Delivery O2 Flow Rate FiO2 03/19/20 09:00 Room Air 03/19/20 08:00 97.0 60 18 107/65 (79) 99 03/19/20 04:00 97.6 101 20 131/100 (110) 96 03/19/20 00:00 97.1 54 16 114/75 (88) 97 03/18/20 21:00 Room Air 03/18/20 20:00 98.1 58 16 101/71 (81) 98 Intake and Output 03/18/20 03/19/20 19:00 07:00 Intake Total 75 ml 1285 ml Balance 75 ml 1285 ml Intake Oral 480 ml IV Total 75 ml 805 ml # Voids 2 2 Laboratory Tests 03/19/20 05:10: White Blood Count 12.0H, Red Blood Count 4.06L, Hemoglobin 12.6, Hematocrit 37.4 , Mean Corpuscular Volume 92, Mean Corpuscular Hemoglobin 31.2H, Mean Corpuscular Hemoglobin Concent 33.8, Red Cell Distribution Width 11.8, Platelet Count 212, Mean Platelet Volume 5.4L, Neutrophils (%) (Auto) 74.3, Lymphocytes ( %) (Auto) 16.3L, Monocytes (%) (Auto) 7.1, Eosinophils (%) (Auto) 1.5, Basophils (%) (Auto) 0.8, Sodium Level 149H, Potassium Level 3.5, Chloride Level 111H, Carbon Dioxide Level 30, Anion Gap 8, Blood Urea Nitrogen 22H, Creatinine 0.5L, Estimat Glomerular Filtration Rate > 60, Glucose Level 117H, Uric Acid 2.2L, Calcium Level 9.1, Phosphorus Level 2.2L, Magnesium Level 2.1, Total Bilirubin 0.4, Aspartate Amino Transf (AST/SGOT) 127H, Alanine Aminotransferase (ALT/SGPT) 76, Alkaline Phosphatase 64, Total Protein 6.9, Albumin 3.5, Globulin 3.4, Albumin/Globulin Ratio 1.0 Height (Feet): 5 Height (Inches): 1.00 Weight (Pounds): 82 General Appearance: lethargic EENT: normal ENT inspection Neck: normal alignment Cardiovascular: normal peripheral pulses, normal rate, regular rhythm Respiratory/Chest: chest wall non-tender, lungs clear, normal breath sounds Abdomen: normal bowel sounds, non tender, soft Extremities: normal inspection Edema: no edema noted Arm (L), no edema noted Arm (R), no edema noted Leg (L), no edema noted Leg (R), no edema noted Pedal (L), no edema noted Pedal (R), no edema noted Generalized Neurologic: motor weakness Skin: normal pigmentation, warm/dry Tk Herrera DO Mar 19, 2020 12:19
--- NOTE | 2020-03-19 12:59 | NUR ---
MANAGEMENT CONSULTANT NOTE SW was informed to refer pt to [facility] psych. MEI spoke w/ Ariel from [facility] intake [phone] that pt's referral cannot be reviewed d/t insurance being out of [facility]
--- NOTE | 2020-03-19 14:30 | NUR ---
NURSE NOTES: Contacted Dr. Yates regarding patient's restlessness and agitation. New orders received and verified.
--- NOTE | 2020-03-19 15:56 | NUR ---
CASE MANAGEMENT: REVIEW 03/19/20 SI:[place]ON CHOREA 97.6 101 20 131/100 96% ON RA WBC 12.0 NA+ 149 CL-111 BUN 22 CREAT 0.5 BG 117 PHOS 2.2 AST 127 IS:IV ROCEPHIN Q24HR IV D5@75ML/HR HEPARIN SQ BID ATIVAN Q6HR/PRN \: 3E MED SURG UNIT PLAN: PYSC EVAL NON-VIOLENT RESTRAINTS IN PLACE MONITOR BEHAVIOR
[2020-03-19 16:00] VITALS: BP 116/82
--- NOTE | 2020-03-19 16:04 | NUR ---
*-* INSURANCE *-* ALL AVAILABLE CLINICALS HAVE BEEN FAXED TO: [facility] F: [phone]
--- NOTE | 2020-03-19 16:16 | Nephrology Progress Note ---
Assessment/Plan Problem List: (1) Dehydration ICD Codes: E86.0 - Dehydration SNOMED: 81536215 (2) Electrolyte imbalance ICD Codes: E87.8 - Other disorders of electrolyte and fluid balance, not elsewhere classified SNOMED: 612483429 (3) [place] chorea ICD Codes: G10 - [place]'s disease SNOMED: 03732060 (4) Leukocytosis ICD Codes: D72.829 - Elevated white blood cell count, unspecified SNOMED: 550777005, 508065495 Status: unchanged Subjective Allergies: Coded Allergies: No Known Allergies (Unverified , 03/17/20) Objective Last 24 Hour Vital Signs Date Time Temp Pulse Resp B/P (MAP) Pulse Ox O2 Delivery O2 Flow Rate FiO2 03/19/20 12:00 97.6 62 18 119/71 (87) 99 03/19/20 09:00 Room Air 03/19/20 08:00 97.0 60 18 107/65 (79) 99 03/19/20 04:00 97.6 101 20 131/100 (110) 96 03/19/20 00:00 97.1 54 16 114/75 (88) 97 03/18/20 21:00 Room Air 03/18/20 20:00 98.1 58 16 101/71 (81) 98 Intake and Output 03/18/20 03/19/20 19:00 07:00 Intake Total 75 ml 1285 ml Balance 75 ml 1285 ml Intake Oral 480 ml IV Total 75 ml 805 ml # Voids 2 2 Laboratory Tests 03/19/20 05:10: White Blood Count 12.0H, Red Blood Count 4.06L, Hemoglobin 12.6, Hematocrit 37.4 , Mean Corpuscular Volume 92, Mean Corpuscular Hemoglobin 31.2H, Mean Corpuscular Hemoglobin Concent 33.8, Red Cell Distribution Width 11.8, Platelet Count 212, Mean Platelet Volume 5.4L, Neutrophils (%) (Auto) 74.3, Lymphocytes ( %) (Auto) 16.3L, Monocytes (%) (Auto) 7.1, Eosinophils (%) (Auto) 1.5, Basophils (%) (Auto) 0.8, Sodium Level 149H, Potassium Level 3.5, Chloride Level 111H, Carbon Dioxide Level 30, Anion Gap 8, Blood Urea Nitrogen 22H, Creatinine 0.5L, Estimat Glomerular Filtration Rate > 60, Glucose Level 117H, Uric Acid 2.2L, Calcium Level 9.1, Phosphorus Level 2.2L, Magnesium Level 2.1, Total Bilirubin 0.4, Aspartate Amino Transf (AST/SGOT) 127H, Alanine Aminotransferase (ALT/SGPT) 76, Alkaline Phosphatase 64, Total Protein 6.9, Albumin 3.5, Globulin 3.4, Albumin/Globulin Ratio 1.0 Height (Feet): 5 Height (Inches): 1.00 Weight (Pounds): 82 Hayden Brown MD Mar 19, 2020 16:16
--- NOTE | 2020-03-19 19:41 | NUR ---
NURSE NOTES: Report received from HARRIS Dan. Patient in stable condition. With restraints and agitated, but no signs of acute distress. IV intact.
--- NOTE | 2020-03-19 19:45 | Progress Note ---
DATE: 03/19/2020 SUBJECTIVE: The patient is a 39-year-old female patient. She has altered mental status. She is 39 years old. She is confused and disorganized. She has been having some psychomotor agitation and irritability. She has dysphoria. She has mood, confusion, disorganized thought process, mood lability, and decline in cognition below her baseline. rule out seizure disorder or activity, but she has lot of psychomotor agitation, involuntary movements of medications to control. MENTAL STATUS EXAMINATION: This is a 39-year-old female. Appearance is disheveled. Attitude, irritable and agitated. Affect is labile. Intellect poor. Mood, depressed and anxious. Motor activity, psychomotor agitation. Attention span is poor. Orientation x2. Speech is nonsensical, mostly nonverbal. Thought process, disorganized and illogical. Insight and judgment is poor. DIAGNOSIS: Major depressive disorder, severe, recurrent with psychotic features. PLAN: I am going to treat this patient with a psychotropic medication regimen consisting of Seroquel 50 mg 3 times a day to reduce her agitation level. Ativan at a dose of 1 mg IM q.6h. p.r.n. anxiety or agitation. Provided with 20 minutes of behavioral management. Chart was reviewed and discussed with staff. Seen and assessed at bedside. John Yates M.D. DR: Elizabeth JOB#: [id number] CC:
[2020-03-19 20:00] VITALS: BP 89/58
[2020-03-19] MEDS: cefTRIAXone 1 GM in D5W 55 ML IVPB SCH (23:19)
[2020-03-20] VITALS: BP 91/54
[2020-03-20] MEDS: LORazepam Inj 2mg/ml 1ml IM PRN ×3 (00:23→18:32)
--- NOTE | 2020-03-20 02:07 | NUR ---
NURSE NOTES: Patient still agitated after Ativan IM. Ativan not effective, restraints on. Diversion therapy attempted, still ineffective. Attempted to feed patient, Was able to have her drink some thickened apple juice and Ensure clear. Aspiration precautions implemented. Notified Dr. Yates.
[2020-03-20] MEDS ORDERED: Haloperidol 5mg/ml Inj IM SCH (02:45)
[2020-03-20] MEDS ORDERED: LORazepam Inj 2mg/ml 1ml IM SCH (02:45)
[2020-03-20] MEDS ORDERED: DiphenhydrAMINE 50mg/ml Inj IM SCH (02:45)
[2020-03-20 06:23] LABS: BASOPHILS % (AUTO) 1.1 % (0.0-2.0); EOSINOPHILS % (AUTO) 2.6 % (0.0-3.0); HEMATOCRIT 37.1 % (37.0-47.0); LYMPHOCYTES % (AUTO) 30.6 % (20.0-45.0); MEAN CORPUSCULAR VOLUME 91 FL (80-99); MONOCYTES % (AUTO) 7.5 % (1.0-10.0); NEUTROPHILS % (AUTO) 58.2 % (45.0-75.0); PLATELET COUNT 206 K/UL (150-450); RED BLOOD COUNT 4.07 M/UL (4.20-5.40); RED CELL DISTRIBUTION WIDTH 11.2 % (11.6-14.8); WHITE BLOOD COUNT 10.7 K/UL (4.8-10.8)
[2020-03-20 06:34] LABS: ANION GAP 5 mmol/L (5-15); BLOOD UREA NITROGEN 12 mg/dL (7-18); CARBON DIOXIDE 32 MMOL/L (21-32); CHLORIDE 107 MMOL/L (98-107); CREATININE 0.6 MG/DL (0.55-1.30); POTASSIUM 5.3 MMOL/L (3.5-5.1); SODIUM 144 MMOL/L (136-145)
--- NOTE | 2020-03-20 06:36 | NUR ---
NURSE NOTES: Received an order from Dr. Yates for cocktail. Patient calmed down and fell asleep , no indication to give medication now.She fell asleep for about 2-3 hours. Removed restraints while patient is asleep. Pulses felt in bilateral upper extremities, hands are warm to touch, capillary refill <3 seconds. Patient woke up agitated and combative, attempting to hit and kick healthcare staff. Continued with soft wrist restraints. Bed bath performed on patient and did complete linen change. Patient is incontinent x2. No issues with voiding. Patient did not have a bowel movement for my shift.
--- NOTE | 2020-03-20 07:14 | NUR ---
HAND-OFF: Report given to HARRIS Mendoza. Patient is in stable condition .Seen eating upright and no difficulties swallowing.
--- NOTE | 2020-03-20 07:44 | NUR ---
NURSE NOTES: Received report from Tanvir IGLESIAS, pt wake, no s/s of distress on RA, pt has a Rt forearm 22G with IVF , skin tear on R elbow ,dressing clean , 2 point oft restraint , on bilateral wrist , with s/s good circulation , skin intact , side rails upX2 and padded for safety bed in low locked position will continue with plan of care
--- NOTE | 2020-03-20 07:48 | General Progress Note ---
Assessment/Plan Problem List: (1) Leukocytosis ICD Codes: D72.829 - Elevated white blood cell count, unspecified SNOMED: 793707976, 631869592 (2) [place] chorea ICD Codes: G10 - [place]'s disease SNOMED: 39320898 (3) Dehydration ICD Codes: E86.0 - Dehydration SNOMED: 38850683 (4) Electrolyte imbalance ICD Codes: E87.8 - Other disorders of electrolyte and fluid balance, not elsewhere classified SNOMED: 306408451 Status: stable, progressing Assessment/Plan: pt diet abx ivf dc if clear Subjective Allergies: Coded Allergies: No Known Allergies (Unverified , 03/17/20) All Systems: reviewed and negative except above Subjective sleepy calm Objective Last 24 Hour Vital Signs Date Time Temp Pulse Resp B/P (MAP) Pulse Ox O2 Delivery O2 Flow Rate FiO2 03/20/20 00:00 97.5 52 20 91/54 (66) 96 03/19/20 21:00 Room Air 03/19/20 20:00 75 20 89/58 (68) 98 03/19/20 16:00 98.0 90 20 116/82 (93) 99 03/19/20 12:00 97.6 62 18 119/71 (87) 99 03/19/20 09:00 Room Air 03/19/20 08:00 97.0 60 18 107/65 (79) 99 Intake and Output 03/19/20 03/20/20 19:00 07:00 # Voids 2 4 Laboratory Tests 03/20/20 05:20: White Blood Count 10.7, Red Blood Count 4.07L, Hemoglobin 13.0, Hematocrit 37.1 , Mean Corpuscular Volume 91, Mean Corpuscular Hemoglobin 31.9H, Mean Corpuscular Hemoglobin Concent 35.0, Red Cell Distribution Width 11.2L, Platelet Count 206, Mean Platelet Volume 5.6L, Neutrophils (%) (Auto) 58.2, Lymphocytes (%) (Auto) 30.6, Monocytes (%) (Auto) 7.5, Eosinophils (%) (Auto) 2.6, Basophils (%) (Auto) 1.1, Sodium Level 144, Potassium Level 5.3#H, Chloride Level 107, Carbon Dioxide Level 32, Anion Gap 5, Blood Urea Nitrogen 12 , Creatinine 0.6, Estimat Glomerular Filtration Rate > 60, Glucose Level 88, Calcium Level 9.0 Height (Feet): 5 Height (Inches): 1.00 Weight (Pounds): 82 General Appearance: lethargic EENT: normal ENT inspection Neck: normal alignment Cardiovascular: normal peripheral pulses, normal rate, regular rhythm Respiratory/Chest: chest wall non-tender, lungs clear, normal breath sounds Abdomen: normal bowel sounds, non tender, soft Extremities: normal inspection Edema: no edema noted Arm (L), no edema noted Arm (R), no edema noted Leg (L), no edema noted Leg (R), no edema noted Pedal (L), no edema noted Pedal (R), no edema noted Generalized Skin: normal pigmentation, warm/dry Tk Herrera DO Mar 20, 2020 07:48
[2020-03-20] MEDS ORDERED: ZyPREXA Zydis 5mg tab SL SCH ×2 (09:00→21:00)
[2020-03-20] MEDS: Docusate 100mg cap ORAL SCH (09:23)
[2020-03-20] MEDS: Phospha 250 Neutral tab ORAL SCH ×3 (09:23→18:58)
[2020-03-20] MEDS: Heparin 5000 units/ml inj SUBQ SCH (09:25)
--- NOTE | 2020-03-20 09:28 | NUR ---
*-*DISCHARGE PLANNING*-* PATIENT HAS BEEN REFERRED BACK TO: [facility] P: [phone] Addendum: 03/20/20 at 1146 by BONIFACIO HOOD CM *-*DISCHARGE PLANNING*-* PATIENT HAS BEEN REFERRED BACK TO: [facility] P: [phone] S/W JD, CHIKA LOOKING FOR ROOM#, WILL CALL BACK.
--- NOTE | 2020-03-20 11:53 | NUR ---
*-* INSURANCE *-* UPDATED CLINICALS HAVE BEEN FAXED TO: [facility] [place] F: [phone]
[2020-03-20 12:00] VITALS: BP 101/66
--- NOTE | 2020-03-20 12:06 | Nephrology Progress Note ---
Assessment/Plan Problem List: (1) Dehydration (2) Electrolyte imbalance (3) [place] chorea (4) Leukocytosis Assessment Dehydration Hypernatremia secondary to dehydration and free water deficit Electrolyte abnormalities, hypokalemia, hypophosphatemia, Plan Patient remains agitated periodically. Mildly elevated potassium due to hemolysis. Otherwise renal parameters stable. p.o. intake remains poor. Discussed with RN. Neuro/psych management Stable from renal standpoint of view for discharge Subjective ROS Limited/Unobtainable: Yes Objective Objective Last 24 Hour Vital Signs Date Time Temp Pulse Resp B/P (MAP) Pulse Ox O2 Delivery O2 Flow Rate FiO2 03/20/20 09:00 Room Air 03/20/20 00:00 97.5 52 20 91/54 (66) 96 03/19/20 21:00 Room Air 03/19/20 20:00 75 20 89/58 (68) 98 03/19/20 16:00 98.0 90 20 116/82 (93) 99 Intake and Output 03/19/20 03/20/20 19:00 07:00 # Voids 2 4 Laboratory Tests 03/20/20 05:20: White Blood Count 10.7, Red Blood Count 4.07L, Hemoglobin 13.0, Hematocrit 37.1 , Mean Corpuscular Volume 91, Mean Corpuscular Hemoglobin 31.9H, Mean Corpuscular Hemoglobin Concent 35.0, Red Cell Distribution Width 11.2L, Platelet Count 206, Mean Platelet Volume 5.6L, Neutrophils (%) (Auto) 58.2, Lymphocytes (%) (Auto) 30.6, Monocytes (%) (Auto) 7.5, Eosinophils (%) (Auto) 2.6, Basophils (%) (Auto) 1.1, Sodium Level 144, Potassium Level 5.3#H, Chloride Level 107, Carbon Dioxide Level 32, Anion Gap 5, Blood Urea Nitrogen 12 , Creatinine 0.6, Estimat Glomerular Filtration Rate > 60, Glucose Level 88, Calcium Level 9.0 Height (Feet): 5 Height (Inches): 1.00 Weight (Pounds): 82 General Appearance: mild distress Cardiovascular: other - Variable rate Abdomen: soft Hayden Brown MD Mar 20, 2020 12:06
--- NOTE | 2020-03-20 13:00 | NUR ---
*-*DISCHARGE PLANNED*-* PATIENT HAS BEEN ACCEPTED AND WILL BE DISCHARGED BACK TO: [facility] P: [phone] # [id number] TRANSPORTATION SET FOR 5:30PM S/W BRYAN [id number] S/W PATIENTS MOTHER, GABRIELLE PEDRO, WHO IS IN AGREEMENT WITH DISCHARGE PLAN.
--- NOTE | 2020-03-20 14:03 | Infectious Diseases Prog Note ---
Assessment/Plan Assessment/Plan Assessment: Afebrile Leukocytosis, SP- likely reactive and from hemoconcentration due to dehydration -CXR was not done- did not cooperate -Bcx NTD -u/a no pyuria, nit neg, leuk neg Dehydration Rhabdomylosis AMY, improving -CK int the 1k, blood in urine +5 but no RBCs [place]'s chorea- increased in movements NH resident ([facility]) Plan: -Dc Ceftriaxone #3 and monitor off abx -ok to discharge back to SNF -f/u cx -Monitor CBC/CMP, temperatures -Neuro eval -aspiration precautions Thank you for consulting [facility]. Will continue to follow along with you. Subjective Allergies: Coded Allergies: No Known Allergies (Unverified , 03/17/20) Subjective afebrile leukocytosis resolved discharge planning Objective Vital Signs Last 24 Hour Vital Signs Date Time Temp Pulse Resp B/P (MAP) Pulse Ox O2 Delivery O2 Flow Rate FiO2 03/20/20 12:00 97.7 56 18 101/66 (78) 99 03/20/20 09:00 Room Air 03/20/20 00:00 97.5 52 20 91/54 (66) 96 03/19/20 21:00 Room Air 03/19/20 20:00 75 20 89/58 (68) 98 03/19/20 16:00 98.0 90 20 116/82 (93) 99 Height (Feet): 5 Height (Inches): 1.00 Weight (Pounds): 82 Objective General Appearance: normal inspection, well appearing, alert Head: atraumatic ENT: normal ENT inspection, hearing grossly normal, normal voice Neck: normal inspection, full range of motion, supple, no bony tend Respiratory: normal inspection, lungs clear, normal breath sounds, no respiratory distress, no retraction, no wheezing Cardiovascular #1: regular rate, rhythm, no edema Gastrointestinal: normal inspection, normal bowel sounds, non tender, soft, no guarding, no hernia Microbiology Date/Time Source Procedure Growth Status 03/18/20 05:42 Blood Blood Culture - Preliminary NO GROWTH AFTER 24 HOURS Resulted 03/18/20 05:30 Blood Blood Culture - Preliminary NO GROWTH AFTER 24 HOURS Resulted 03/17/20 22:30 Nasal Nares MRSA Culture - Final NO METHICILLIN RESISTANT STAPH AUREUS... Complete 03/17/20 22:30 Rectum VRE Culture - Final NO VANCOMYCIN RESISTANT ENTEROCOCCUS ... Complete Laboratory Tests Test 03/20/20 05:20 White Blood Count 10.7 K/UL (4.8-10.8) Red Blood Count 4.07 M/UL (4.20-5.40) L Hemoglobin 13.0 G/DL (12.0-16.0) Hematocrit 37.1 % (37.0-47.0) Mean Corpuscular Volume 91 FL (80-99) Mean Corpuscular Hemoglobin 31.9 PG (27.0-31.0) H Mean Corpuscular Hemoglobin Concent 35.0 G/DL (32.0-36.0) Red Cell Distribution Width 11.2 % (11.6-14.8) L Platelet Count 206 K/UL (150-450) Mean Platelet Volume 5.6 FL (6.5-10.1) L Neutrophils (%) (Auto) 58.2 % (45.0-75.0) Lymphocytes (%) (Auto) 30.6 % (20.0-45.0) Monocytes (%) (Auto) 7.5 % (1.0-10.0) Eosinophils (%) (Auto) 2.6 % (0.0-3.0) Basophils (%) (Auto) 1.1 % (0.0-2.0) Sodium Level 144 MMOL/L (136-145) Potassium Level 5.3 MMOL/L (3.5-5.1) #H Chloride Level 107 MMOL/L (98-107) Carbon Dioxide Level 32 MMOL/L (21-32) Anion Gap 5 mmol/L (5-15) Blood Urea Nitrogen 12 mg/dL (7-18) Creatinine 0.6 MG/DL (0.55-1.30) Estimat Glomerular Filtration Rate > 60 mL/min (>60) Glucose Level 88 MG/DL (74-106) Calcium Level 9.0 MG/DL (8.5-10.1) Current Medications Medications (Trade) Dose Ordered Sig/Martin Route PRN Reason Start Time Stop Time Status Last Admin Dose Admin Acetaminophen (Tylenol) 650 mg Q4H PRN RECTAL Mild Pain/TEMP 03/18/20 10:15 04/17/20 10:14 Acetaminophen (Tylenol) 650 mg Q6H PRN ORAL MILD/TEMP 03/18/20 05:15 04/17/20 04:44 Acetaminophen (Tylenol) 650 mg Q6H PRN ORAL MILD/TEMP 03/18/20 05:15 04/17/20 04:44 Ceftriaxone Sodium 1 gm/ Dextrose 55 ml @ 110 mls/hr Q24H IVPB 03/18/20 00:00 03/25/20 00:00 03/19/20 23:19 Dextrose 1,000 ml @ 75 mls/hr [id number] IV 03/18/20 08:30 04/17/20 08:29 03/19/20 23:20 Docusate Sodium (Colace) 100 mg DAILY ORAL 03/18/20 09:00 04/17/20 08:59 03/20/20 09:23 Heparin Sodium (Porcine) (Heparin 5000 units/ml) 5,000 units EVERY 12 HOURS SUBQ 03/18/20 21:00 05/02/20 20:59 03/20/20 09:25 Hyoscyamine Sulfate (Levsin) 0.125 mg Q6H PRN ORAL EXCESSIVE SECRETIONS 03/18/20 04:45 04/17/20 04:44 Lorazepam (Ativan 2mg/ml 1ml) 1 mg Q6H PRN IM For Anxiety 03/18/20 05:00 03/25/20 04:44 03/20/20 09:25 Olanzapine (ZyPREXA Zydis) 5 mg DAILY SL 03/20/20 09:00 05/04/20 08:59 03/20/20 09:23 Olanzapine (ZyPREXA Zydis) 10 mg QHS SL 03/20/20 21:00 05/04/20 20:59 Ondansetron HCl (Zofran ODT) 4 mg Q6H PRN ORAL Nausea & Vomiting 03/18/20 04:45 04/17/20 04:44 Phosphorus (Phospha 250 Neutral) 250 mg THREE TIMES A DAY ORAL 03/18/20 18:00 04/17/20 17:59 03/20/20 13:23 Quetiapine Fumarate (SEROqueL) 50 mg TID ORAL 03/18/20 13:00 05/02/20 12:59 03/20/20 13:24 Anamika Mejía M.D. Mar 20, 2020 14:03
[2020-03-20 16:00] VITALS: BP 97/60
--- NOTE | 2020-03-20 17:56 | NUR ---
[facility] was contacted. YVON told me that they are backed up and the ambulance is estimated to arrive at 1900 instead of the previously planned 1700.
--- NOTE | 2020-03-20 19:42 | NUR ---
HAND-OFF: Report given to Dominga IGLESIAS, pt stable.
--- NOTE | 2020-03-20 19:53 | NUR ---
NURSE NOTES: Called [facility] , and gave report to Bev
--- NOTE | 2020-03-20 20:10 | NUR ---
Pt left floor in stable condition [facility] escorted patient to [facility]
--- NOTE | 2020-03-20 23:00 | Progress Note ---
DATE: 03/20/2020 SUBJECTIVE: This is a 39-year-old female patient. She has tremendous amount of [place]'s chorea, so she has got a lot of psychomotor agitation and irritability. She also has leukocytosis, dehydration, electrolyte imbalance, , agitation, and a lot of movement problems making it difficult to redirect and stabilize her in the room as she has so much psychomotor agitation. That is why, a daily psychiatric consultation is requested. MENTAL STATUS EXAMINATION: A 39-year-old female. Her appearance is disheveled. Attitude, irritable and agitated. Affect, restricted. Intellect poor. Mood, depressed and anxious. Motor activity, psychomotor agitation. Attention span is poor. Orientation x2. Speech is nonsensical. Thought process, disorganized, illogical. Thought content, auditory hallucinations, paranoid delusions. Insight and judgment is poor. DIAGNOSIS: Paranoid schizophrenia with acute exacerbation. PLAN: Treat the patient with psychotropic medication regimen consisting of Seroquel 50 mg 3 times a day, Zyprexa Zydis 5 mg sublingual q.a.m., 10 mg sublingual q.p.m., Ativan 1 mg every 6 hours IM as needed for anxiety, agitation. Twenty minutes of insight-oriented psychotherapy to try to help this patient have an understanding and recognition of her psychiatric and physical condition so that she will have more impulse control and better behavior on the unit. Chart reviewed. Discussed with staff. Patient was seen and assessed at bedside. John Yates M.D. DR: MJ JOB#: [id number] CC:
--- NOTE | 2020-03-22 15:07 | Discharge Summary ---
Discharge Summary Discharge Summary _ DATE OF ADMISSION: 03/17/2020 DATE OF DISCHARGE: 03/20/2020 DISCHARGED BY: Dr. Tk Herrera CONSULTANTS: Dr. John Mcintosh Heidy [facility]SE: Patient is a 39-year-old female from [facility], who was brought in by BLS from shelter due to increased generalized body movement. Patient has history of Vaughn's chorea. Patient was sent in due to worsening generalized body movement. Upon evaluation at ED, vital signs were stable. Patient has severe choreic movements. Blood work showed WBC elevated to 18. Hemoglobin and hematocrit were stable. Sodium was 149, potassium 3.5, chloride 111. Magnesium and phosphorus level normal. BUN was 25, creatinine 0.5. Total creatinine kinase was 1482. Urinalysis showed 5+ blood, 2+ protein. Urine toxicology screen negative. She was admitted for evaluation. She was given IV hydration. She was started empirically on ceftriaxone pending culture results. Electrolytes were monitored. Hyponatremia was secondary to dehydration and free water deficit. Psychiatric evaluation was done. She was started on Seroquel 50 mg twice daily to help reduce agitation and irritability. Patient has psychomotor agitation. She was eventually given Zyprexa positive for about how many to get Dr. Beard can show last so while she She also underwent neuro evaluation for seizure. Per examination, patient has altered mental status from Wm's chorea and hyperosmolar state. There was no evidence of seizures. She was not started on anticonvulsants. Leukocytosis down trended. Leukocytosis was likely reactive and possibly from hemoconcentration due to dehydration. Blood culture did not isolate any growth. There was no evidence of pyuria on urinalysis. Chest x-ray was not done as patient did not cooperate. Antibiotics were discontinued. Patient was eventually discharged back to shelter. FINAL DIAGNOSIS: Dehydration Hypernatremia secondary to dehydration and free water deficit Rhabdomyolysis Acute kidney injury Hypokalemia Hypophosphatemia Vaughn's chorea Leukocytosis, likely reactive and from hemoconcentration Paranoid schizophrenia with acute exacerbation DISPOSITION: DC back to SNF. I have been assigned to complete a discharge summary on this account, I was not involved with the patient's management.--J. Licauco, Delores Concepcion NP Mar 22, 2020 15:07
--- NOTE | 2020-03-23 13:29 | NUR ---
*-* INSURANCE *-* DISCHARGE SUMMARY HAS BEEN FAXED TO: [facility] F: [phone]
== END 2020-03-20 20:11 | DRG 422 ==
LOC: EDBD 21:22 → EMR 21:54 → 3E 22:23 → EDBEDREQ 22:35 → 3E 03-18 10:06
DX: E86.0 Dehydration (principal); G10 Huntington's disease; M62.82 Rhabdomyolysis; N17.9 Acute kidney failure, unspecified; E87.0 Hyperosmolality and hypernatremia; F33.3 Major depressive disorder, recurrent, severe with psychotic symptoms; E87.6 Hypokalemia; E83.39 Other disorders of phosphorus metabolism; F20.0 Paranoid schizophrenia; F41.1 Generalized anxiety disorder; G40.909 Epilepsy, unspecified, not intractable, without status epilepticus
CPT/HCPCS: 36415; 80048; 80053; 80076; 80307; 81001; 81025; 82550; 83735; 84100; 84443; 84550; 85025; 87040; 87081; 96372; 97803; 99285; C9399; J7030